=== PATIENT | male | born 2000 | race Caucasian/White ===

== ENCOUNTER 2024-02-10 21:08 | Emergency (ER) | payer OTHER ==
[~2024-02-10] VITALS: Ht 182.9 cm; Wt 108.9 kg
[2024-02-10] MEDS ORDERED: Ketorolac Tromethamine 30mg Vial IV ONE (21:25)
[2024-02-10] MEDS ORDERED: RX Prepack 6 Tabs Oxycodone 5mg UD ONE (22:25)
[2024-02-10] MEDS ORDERED: HYDROcodone 5-APAP 325 TAB PO ONE (22:25)
== END 2024-02-10 23:00 | disposition home or self-care (01) ==
LOC: ER 21:08
DX: S20.212A Contusion of left front wall of thorax, initial encounter (principal); S91.102A Unspecified open wound of left great toe without damage to nail, initial encounter; T14.8XXA Other injury of unspecified body region, initial encounter; M53.3 Sacrococcygeal disorders, not elsewhere classified; W16.112A Fall into natural body of water striking water surface causing other injury, initial encounter
CPT/HCPCS: 71101; 72220; 96374; 99283-25; A9270; J1885